=== PATIENT | female | born 1970 | race Caucasian/White ===

== ENCOUNTER 2017-08-17 01:11 | Inpatient (IN) ==
[2017-08-17] MEDS ORDERED: ONDANSETRON 4 MG/2 ML VIAL IV STA (01:51)
[2017-08-17] MEDS ORDERED: HYDROmorphone 2 MG/1 ML VIAL IV STA (01:51)
[2017-08-17 01:59] LABS: Basophils # 0.1 10*3/uL (0.0-0.2); Basophils % 0.4 % (0.0-0.8); Eosinophils # 0.1 10*3/uL (0.0-0.87); Eosinophils % 0.6 % (0.00-10.9); Hematocrit 41.8 VOL% (35.7-47.0); Hemoglobin 13.8 GM/DL (12.0-16.0); Immature Granulocytes % 0.5 %; Immature Granulocytes Absolute 0.07 #; Lymphocytes % 13.7 % (21.3-54.2); Mean Corpuscular Hemoglobin 29 PG (27-34); Mean Corpuscular Volume 88.7 FL (87-102); Mean Platelet Volume 9.8 FL (9.6-12.0); Neutrophils # 11.1 10*3/uL (1.4-7.4); Neutrophils % 77.8 % (38.7-73.9); Platelet Count 249 T/CUMM (130-400); Red Blood Count 4.71 MC/CUMM (3.8-5.5); White Blood Count 14.3 T/CUMM (4-12)
[2017-08-17] MEDS ORDERED: ONDANSETRON 4 MG/2 ML VIAL ONE ×2 (02:03→11:48)
[2017-08-17] MEDS ORDERED: HYDROmorphone 2 MG/1 ML VIAL ONE ×2 (02:04→11:47)
[2017-08-17 02:12] LABS: Albumin 3.9 G/DL (3.4-5.0); Bilirubin,Total 0.4 MG/DL (0.2-1.0); Calcium 8.7 MG/DL (8.5-10.1); Osmolality,Calculated 286.8 MOS/KG (273-304); Potassium 4.8 MMOL/L (3.5-5.1); Total Protein 7.2 G/DL (6.4-8.3)
[2017-08-17 02:26] LABS: Apearance,Urine CLEAR (Clear); Bilirubin,Urine Negative (Negative); Blood, Urine Negative (Negative); Glucose,Urine (UA) >=500 mg/dL (Negative); Ketones,Urine 5 mg/dL (Negative); Nitrite,Urine Negative (Negative); Protein,Urine Negative; Squamous Epithelial Cell,Urine Occasional /HPF (0-10); Urine Color Straw (Yellow); Urine Specific Gravity 1.018 (1.001-1.035); Urine Urobilinogen < 2.0 EU/DL (0.2-1.0); WBC,Urine 1 /HPF (0-6)
[2017-08-17] MEDS ORDERED: ONDANSETRON 4 MG/2 ML VIAL IV PRN (03:38)
[2017-08-17] MEDS: HYDROmorphone 2 MG/1 ML VIAL IV PRN (04:33)
[2017-08-17] MEDS: DEXTROSE 5% LACTATED RINGERS 1,000 ML IV SCH ×2 (04:39→19:31)
[2017-08-17] MEDS: PANTOPRAZOLE 40 MG TABLET PO SCH (08:00)
[2017-08-17] MEDS ORDERED: LIDOCAINE 1%/EPI INJ 20 ML VIAL ONE (09:50)
[2017-08-17] MEDS ORDERED: BUPIVACAINE MPF 0.25% /EPI 30 ML VIAL ONE (09:50)
[2017-08-17] MEDS ORDERED: PROPOFOL 200 MG/20 ML VIAL IV ONE (11:47)
[2017-08-17] MEDS ORDERED: MIDAZOLAM 2 MG/2 ML VIAL ONE (11:48)
[2017-08-17] MEDS ORDERED: SEVOFLURANE 1 UNIT/15 MINUTE INH ONE (11:48)
[2017-08-17] MEDS ORDERED: fentaNYL 100 MCG/2 ML VIAL ONE (11:48)
[2017-08-17] MEDS ORDERED: SUCCINYLCHOLINE 200 MG/10 ML VIAL ONE (11:49)
[2017-08-17] MEDS ORDERED: NEOSTIGMINE 10 MG/10 ML VIAL ONE (11:49)
[2017-08-17] MEDS ORDERED: ACETAMINOPHEN 1,000 MG/100 ML VIAL IV ONE (11:49)
[2017-08-17] MEDS ORDERED: ROCURONIUM 100 MG/10 ML VIAL IV ONE (11:49)
[2017-08-17] MEDS ORDERED: PHENYLEPHRINE 10 MG/1 ML VIAL IV ONE (11:49)
[2017-08-17] MEDS ORDERED: LACTATED RINGERS 1,000 ML IV ONE (11:49)
[2017-08-17] MEDS ORDERED: KETOROLAC 30 MG/1 ML VIAL ONE (11:49)
[2017-08-17] MEDS ORDERED: GLUCAGON 1 MG VIAL IM PRN (12:55)
[2017-08-17] MEDS ORDERED: DEXTROSE 50% 25 GM/50 ML VIAL IV PRN (12:55)
[2017-08-17] MEDS: SODIUM CHLORIDE 0.9% 1,000 ML IV SCH (15:01)
[2017-08-17] MEDS: INSULIN LISPRO 100 UNIT/ML SUBCUT SCH ×2 (17:09→21:42)
[2017-08-17] MEDS: GLIMEPIRIDE 4 MG TABLET PO SCH (21:42)
[2017-08-17] MEDS: ATORVASTATIN 20 MG TABLET PO SCH (21:42)
[2017-08-17] MEDS: ACETAMINOPHEN 325 MG TABLET PO PRN (22:07)
[2017-08-18] MEDS: SODIUM CHLORIDE 0.9% 1,000 ML IV SCH (01:05)
[2017-08-18 05:22] LABS: Basophils % 0.3 % (0.0-0.8); Eosinophils # 0.1 10*3/uL (0.0-0.87); Eosinophils % 0.7 % (0.00-10.9); Hematocrit 41.6 VOL% (35.7-47.0); Hemoglobin 13.2 GM/DL (12.0-16.0); Immature Granulocytes % 0.4 %; Immature Granulocytes Absolute 0.05 #; Lymphocytes # 1.4 10*3/uL (1.4-4.0); Mean Corpuscular HGB Conc 31.7 GM/DL (32-36); Mean Corpuscular Hemoglobin 29 PG (27-34); Mean Platelet Volume 9.8 FL (9.6-12.0); Monocytes # 0.9 10*3/uL (0.11-0.8); Monocytes % 7.9 % (1.7-12.7); Neutrophils # 9.2 10*3/uL (1.4-7.4); Neutrophils % 78.7 % (38.7-73.9); Platelet Count 207 T/CUMM (130-400); Red Blood Count 4.52 MC/CUMM (3.8-5.5); Red Cell Distribution Width 14.6 % (9.3-17.3); White Blood Count 11.7 T/CUMM (4-12)
[2017-08-18 05:54] LABS: Calcium 8.8 MG/DL (8.5-10.1); Osmolality,Calculated 285.4 MOS/KG (273-304); Potassium 4.3 MMOL/L (3.5-5.1)
[2017-08-18] MEDS: GLIMEPIRIDE 4 MG TABLET PO SCH ×2 (08:30→20:30)
[2017-08-18] MEDS: PANTOPRAZOLE 40 MG TABLET PO SCH (08:30)
[2017-08-18] MEDS: FUROSEMIDE 20 MG TABLET PO SCH (08:30)
[2017-08-18] MEDS: LISINOPRIL 20 MG TABLET PO SCH (08:30)
[2017-08-18] MEDS: INSULIN LISPRO 100 UNIT/ML SUBCUT SCH ×4 (08:31→20:30)
[2017-08-18] MEDS: metFORMIN 500 MG TABLET PO SCH ×2 (13:01→17:17)
[2017-08-18] MEDS: POLYETHYLENE GLYCOL POWDER 17 GM PACK PO SCH ×2 (13:15→20:30)
[2017-08-18] MEDS: PIPERACILLIN/TAZOBACTAM 3,375 MG in SODIUM CHLORIDE 0.9% 100 ML IV SCH ×2 (14:28→21:53)
[2017-08-18] MEDS: ACETAMINOPHEN 325 MG TABLET PO PRN (17:16)
[2017-08-18] MEDS: DOCUSATE SODIUM 100 MG CAPSULE PO SCH (20:30)
[2017-08-18] MEDS: ATORVASTATIN 20 MG TABLET PO SCH (20:30)
[2017-08-19] MEDS: PIPERACILLIN/TAZOBACTAM 3,375 MG in SODIUM CHLORIDE 0.9% 100 ML IV SCH ×3 (05:41→21:28)
[2017-08-19] MEDS: SODIUM CHLORIDE 0.9% 1,000 ML IV SCH (07:44)
[2017-08-19] MEDS: INSULIN LISPRO 100 UNIT/ML SUBCUT SCH ×4 (08:17→20:54)
[2017-08-19] MEDS: FUROSEMIDE 20 MG TABLET PO SCH (08:19)
[2017-08-19] MEDS: metFORMIN 500 MG TABLET PO SCH ×2 (08:19→16:12)
[2017-08-19] MEDS: GLIMEPIRIDE 4 MG TABLET PO SCH ×2 (08:19→20:54)
[2017-08-19] MEDS: DOCUSATE SODIUM 100 MG CAPSULE PO SCH ×2 (08:19→20:54)
[2017-08-19] MEDS: POLYETHYLENE GLYCOL POWDER 17 GM PACK PO SCH ×2 (08:19→20:55)
[2017-08-19] MEDS: LISINOPRIL 20 MG TABLET PO SCH (08:19)
[2017-08-19] MEDS: PANTOPRAZOLE 40 MG TABLET PO SCH (08:19)
[2017-08-19 12:33] LABS: Basophils % 0.2 % (0.0-0.8); Eosinophils # 0.2 10*3/uL (0.0-0.87); Eosinophils % 1.6 % (0.00-10.9); Hematocrit 36.7 VOL% (35.7-47.0); Hemoglobin 11.8 GM/DL (12.0-16.0); Immature Granulocytes % 0.6 %; Immature Granulocytes Absolute 0.07 #; Lymphocytes # 1.6 10*3/uL (1.4-4.0); Lymphocytes % 12.8 % (21.3-54.2); Mean Corpuscular HGB Conc 32.2 GM/DL (32-36); Mean Corpuscular Hemoglobin 29 PG (27-34); Mean Corpuscular Volume 90.8 FL (87-102); Mean Platelet Volume 9.8 FL (9.6-12.0); Monocytes # 0.9 10*3/uL (0.11-0.8); Neutrophils # 9.5 10*3/uL (1.4-7.4); Neutrophils % 77.8 % (38.7-73.9); Platelet Count 205 T/CUMM (130-400); Red Blood Count 4.04 MC/CUMM (3.8-5.5); Red Cell Distribution Width 14.3 % (9.3-17.3); White Blood Count 12.2 T/CUMM (4-12)
[2017-08-19] MEDS: ACETAMINOPHEN 325 MG TABLET PO PRN (14:42)
[2017-08-19] MEDS: HYDROmorphone 2 MG/1 ML VIAL IV PRN (20:54)
[2017-08-19] MEDS: ATORVASTATIN 20 MG TABLET PO SCH (20:54)
[2017-08-20 04:06] LABS: Basophils % 0.2 % (0.0-0.8); Eosinophils # 0.3 10*3/uL (0.0-0.87); Eosinophils % 2.2 % (0.00-10.9); Hematocrit 33.3 VOL% (35.7-47.0); Hemoglobin 11.2 GM/DL (12.0-16.0); Immature Granulocytes % 0.9 %; Lymphocytes # 1.6 10*3/uL (1.4-4.0); Mean Corpuscular HGB Conc 33.6 GM/DL (32-36); Mean Corpuscular Hemoglobin 30 PG (27-34); Mean Corpuscular Volume 89.5 FL (87-102); Mean Platelet Volume 10.2 FL (9.6-12.0); Monocytes % 9.1 % (1.7-12.7); Neutrophils # 8.5 10*3/uL (1.4-7.4); Neutrophils % 73.6 % (38.7-73.9); Platelet Count 216 T/CUMM (130-400); Red Blood Count 3.72 MC/CUMM (3.8-5.5); Red Cell Distribution Width 14.5 % (9.3-17.3); White Blood Count 11.5 T/CUMM (4-12)
[2017-08-20] MEDS: PIPERACILLIN/TAZOBACTAM 3,375 MG in SODIUM CHLORIDE 0.9% 100 ML IV SCH ×3 (06:02→21:29)
[2017-08-20] MEDS: INSULIN LISPRO 100 UNIT/ML SUBCUT SCH ×4 (09:04→21:19)
[2017-08-20] MEDS: LISINOPRIL 20 MG TABLET PO SCH (09:12)
[2017-08-20] MEDS: FUROSEMIDE 20 MG TABLET PO SCH (09:12)
[2017-08-20] MEDS: metFORMIN 500 MG TABLET PO SCH ×2 (09:12→16:41)
[2017-08-20] MEDS: DOCUSATE SODIUM 100 MG CAPSULE PO SCH ×2 (09:12→21:19)
[2017-08-20] MEDS: GLIMEPIRIDE 4 MG TABLET PO SCH ×2 (09:12→21:20)
[2017-08-20] MEDS: PANTOPRAZOLE 40 MG TABLET PO SCH (09:12)
[2017-08-20] MEDS: POLYETHYLENE GLYCOL POWDER 17 GM PACK PO SCH ×2 (09:13→21:20)
[2017-08-20] MEDS: HYDROmorphone 2 MG/1 ML VIAL IV PRN (21:19)
[2017-08-20] MEDS: ATORVASTATIN 20 MG TABLET PO SCH (21:20)
[2017-08-21 03:40] LABS: Basophils % 0.4 % (0.0-0.8); Eosinophils # 0.3 10*3/uL (0.0-0.87); Eosinophils % 2.7 % (0.00-10.9); Hematocrit 34.7 VOL% (35.7-47.0); Immature Granulocytes % 1.1 %; Immature Granulocytes Absolute 0.11 #; Lymphocytes % 19.5 % (21.3-54.2); Mean Corpuscular HGB Conc 31.7 GM/DL (32-36); Mean Corpuscular Hemoglobin 29 PG (27-34); Mean Corpuscular Volume 91.1 FL (87-102); Mean Platelet Volume 9.9 FL (9.6-12.0); Monocytes # 0.9 10*3/uL (0.11-0.8); Monocytes % 9.3 % (1.7-12.7); Neutrophils # 6.7 10*3/uL (1.4-7.4); Platelet Count 253 T/CUMM (130-400); Red Blood Count 3.81 MC/CUMM (3.8-5.5); Red Cell Distribution Width 14.2 % (9.3-17.3)
[2017-08-21] MEDS: PIPERACILLIN/TAZOBACTAM 3,375 MG in SODIUM CHLORIDE 0.9% 100 ML IV SCH ×2 (05:41→15:06)
[2017-08-21] MEDS: POLYETHYLENE GLYCOL POWDER 17 GM PACK PO SCH (08:29)
[2017-08-21] MEDS: DOCUSATE SODIUM 100 MG CAPSULE PO SCH (08:29)
[2017-08-21] MEDS: FUROSEMIDE 20 MG TABLET PO SCH (08:30)
[2017-08-21] MEDS: metFORMIN 500 MG TABLET PO SCH (08:31)
[2017-08-21] MEDS: PANTOPRAZOLE 40 MG TABLET PO SCH (08:32)
[2017-08-21] MEDS: INSULIN LISPRO 100 UNIT/ML SUBCUT SCH ×2 (08:32→11:34)
[2017-08-21] MEDS: GLIMEPIRIDE 4 MG TABLET PO SCH (08:32)
[2017-08-21] MEDS: LISINOPRIL 20 MG TABLET PO SCH (08:32)
[2017-08-21 11:07] VITALS: BP 121/76
== END 2017-08-21 15:26 | disposition home or self-care (01) | DRG 339 ==
LOC: N.ED 01:11 → N.EDINP 03:38 → N.3E 03:51
PROVIDERS: ADMIT Surgery; ATTEND Surgery